=== PATIENT | male | born 1975 | race Caucasian/White ===

== ENCOUNTER 2021-08-08 09:39 | Day surgery (SDC) | payer OTHER ==
[~2021-08-08] VITALS: Ht 182.9 cm; Wt 81.0 kg
[~2021-08-08 09:39] MED LIST: ANDROGEL TOP; ATEN25 PO; SULTRIDS PO
[2021-08-08] MEDS ORDERED: PROP10 PO (10:04)
[2021-08-08] MEDS ORDERED: VERA80 PO (10:05)
[2021-08-08] MEDS ORDERED: ESCI10 PO (10:05)
[2021-08-08] MEDS ORDERED: LEVSOD100 PO (10:05)
--- NOTE | 2021-08-08 14:24 | NUR ---
08/08/21 1424 CHAVA BUSH DUE TO UNKNOWN FINDINGS, SURGERY WAS EXTENDED AND CALL WAS MADE TO PATIENTS RIDE TO UPDATE ON PROGRESS. PATIENT'S RIDE IS FRIEND, JONAS, WHO IS A NEIGHBOR AND KNOWN PATIENT FOR 10 YEARS. HE IS AWARE PT IS HERE FOR PROCEDURE AND WAS NOTIFIED THAT PROCEDURE IS RUNNING LONGER THAN EXPECTED AND HE MAY CALL FOR ADDITIONAL UPDATE. ADVISED WE WILL CALL ONCE PT IS READY FOR DISCHARGE.
--- NOTE | 2021-08-08 14:57 | NUR ---
08/08/[address] IN @ [id number] MONDRAGON REQUEST
--- NOTE | 2021-08-08 16:08 | NUR ---
08/08/21 1608 Destiny Simpson PT IS DOING WELL, NO PAIN OR NAUSEA. DR OMNDRAGON IN TO TALK WITH THE PT. PT IS EAGER TO BE DISCHARGED.
== END 2021-08-08 16:20 | disposition home or self-care (01) ==
LOC: ORSCSDS 09:39
PROVIDERS: Orthopaedic Surgery
PROC: 0SBD4ZZ Excision of Left Knee Joint, Percutaneous Endoscopic Approach (ICD-10-PCS; principal; 2021-08-08 11:00)
PROC: 0QSH44Z Reposition Left Tibia with Internal Fixation Device, Percutaneous Endoscopic Approach (ICD-10-PCS; principal; 2021-08-08 11:00)
DX: S83.242A Other tear of medial meniscus, current injury, left knee, initial encounter (principal); S82.142A Displaced bicondylar fracture of left tibia, initial encounter for closed fracture; I10 Essential (primary) hypertension; E03.9 Hypothyroidism, unspecified; Z79.899 Other long term (current) drug therapy
CPT/HCPCS: C1713; J0171; J0690; J1100; J1885; J2250; J2405; J2704; J3010; J7120